=== PATIENT | male | born 1990 | race Asian ===

== ENCOUNTER 2017-08-24 13:49 | Inpatient (IN) | payer OTHER ==
[~2017-08-24] VITALS: Ht 162.6 cm; Wt 85.3 kg
--- NOTE | 2017-08-24 13:56 | NUR ---
CLINT FROM HOME DT HEADACHE, BACK PAIN AND LEG PAIN FOR FEW DAYS WORST TODAY, 8, ACHING. PATIENT IS AAO4. APPEARS IN NO APPARENT DISTRESS. RESPIRATION EVEN AND UNLABORED. SKIN IS WARM TO TOUCH AND NON DIPAHORETIC. AFEBRILE. VSS
--- NOTE | 2017-08-24 14:06 | NUR ---
THAI LEWIS AT BS
[2017-08-24] MEDS ORDERED: TRAMADOL HCL 50 MG TABLET ONE (14:11)
[2017-08-24] MEDS ORDERED: IV NS 0.9% 1,000 ML BAG IV ONE ×2 (14:30→15:30)
[2017-08-24] MEDS ORDERED: TRAMADOL HCL 50 MG TABLET PO ONE (14:30)
[2017-08-24 14:36] LABS: BASOPHILS % (AUTO) 0.5 % (0.0-2.0); EOSINOPHILS # (AUTO) 0.7 /CMM (0.0-0.7); EOSINOPHILS % (AUTO) 14.5 % (0.0-6.0); HEMATOCRIT 24 % (39-51); HEMOGLOBIN 8.2 g/dL (13.5-17.5); LYMPHOCYTES # (AUTO) 0.6 /CMM (0.8-4.8); LYMPHOCYTES % (AUTO) 13.7 % (20.0-44.0); MEAN CORPUSCULAR HEMOGLOBIN 30 PG (26.0-33.0); MEAN CORPUSCULAR HGB CONC 34 g/dl (31.0-36.0); MEAN CORPUSCULAR VOLUME 89 fL (80-96); MONOCYTES # (AUTO) 0.9 /CMM (0.1-1.30); MONOCYTES % (AUTO) 19.1 % (2.0-12.0); NEUTROPHILS # (AUTO) 2.5 /CMM (1.8-8.9); NEUTROPHILS % (AUTO) 52.2 % (43.0-81.0); PLATELET COUNT (AUTO) 160 /CMM (150-450); RDW COEFFICIENT OF VARIATION 12.7 (11.5-15.0); RED BLOOD CELL COUNT(AUTO) 2.72 MIL/uL (4.5-6.0); WHITE BLOOD COUNT (AUTO) 4.7 K/uL (4.3-11.0)
[2017-08-24 14:50] LABS: INR 0.85 (0.87-1.13); PROTHROMBIN TIME 8.8 SECS (9.5-12.7)
[2017-08-24 14:52] LABS: ALBUMIN 1.6 g/dL (3.4-5.0); BILIRUBIN,TOTAL 0.1 mg/dL (0.2-1.0); CALCIUM, SERUM 8.2 mg/dL (8.5-10.1); CREATININE 4.9 mg/dL (0.6-1.3); POTASSIUM 5.4 mmol/L (3.5-5.1); TOTAL PROTEIN, SERUM 5.9 g/dL (6.4-8.2)
--- NOTE | 2017-08-24 15:09 | NUR ---
URINE SAMPLE SENT TO LAB
[2017-08-24 15:19] LABS: APPEARANCE,URINE Clear (CLEAR); BILIRUBIN,URINE Negative (NEGATIVE); BLOOD, URINE Moderate Ery/uL (NEGATIVE); COLOR,URINE Light yellow (YELLOW); KETONES,URINE Negative (NEGATIVE); LEUKOCYTE ESTERASE ,URINE Negative (NEGATIVE); NITRITE, URINE Negative (NEGATIVE); PROTEIN,URINE >=300 mg/dl (NEGATIVE); UGLUCOSE 500 MG/DL mg/dL (NEGATIVE); UROBILINOGEN,URINE 0.2 EU/dL (0.2)
[2017-08-24 15:20] LABS: BAND % (MANUAL) 2 % (0.0-5.0); EOSINOPHILS % (MANUAL) 18 % (0-4); LYMPHOCYTES % (MANUAL) 20 % (16-48); MONOCYTES % (MANUAL) 10 % (0-11.0); NEUTROPHILS % (MANUAL) 50 (42-76)
[2017-08-24 15:24] LABS: BACTERIA,URINE None seen /HPF (None Seen); SQUAMOUS EPITHELIAL CELL,UR Few /HPF (None Seen); WBC,URINE 0-3 /HPF (0-3)
[2017-08-24] MEDS ORDERED: INSULIN REGULAR, HUMAN 100 UNIT/ML 10 ML VIAL ONE (15:28)
[2017-08-24] MEDS ORDERED: INSULIN REGULAR, HUMAN 100 UNIT/ML 10 ML VIAL SQ ONE (15:30)
[2017-08-24 15:50] LABS: ALCOHOL, BLOOD < 3 mg/dL (0-0)
[2017-08-24 16:03] LABS: SERUM AMMONIA 36 umol/L (11-32)
--- NOTE | 2017-08-24 16:49 | NUR ---
REPORT GIVEN TO RN JOB FOR CONTINUITY OF CARE
--- NOTE | 2017-08-24 16:50 | NUR ---
DR. DANIELS AT BEDSIDE
[2017-08-24] MEDS ORDERED: MAG HYDROX/AL HYDROX/SIMETH 30 ML UDC PO PRN (17:30)
[2017-08-24] MEDS ORDERED: ZOLPIDEM TARTRATE 5 MG TABLET PO PRN (17:30)
[2017-08-24] MEDS ORDERED: MAGNESIUM HYDROXIDE 30 ML UDC PO PRN (17:30)
[2017-08-24] MEDS ORDERED: ONDANSETRON HCL/PF 4 MG/2 ML VIAL IVP PRN (17:30)
[2017-08-24] MEDS ORDERED: ACETAMINOPHEN 325 MG TABLET PO PRN (17:30)
[2017-08-24] MEDS ORDERED: *INSULIN ASPART NOVOLOG 100 UNIT/ML CARTRIDGE SQ PRN (17:30)
[2017-08-24] MEDS ORDERED: DEXTROSE 50%-WATER 50 ML DISP.SYRIN IV PRN (17:30)
[2017-08-24] MEDS ORDERED: Z GUARD REMEDY 2 OZ OINT TP PRN (17:30)
[2017-08-24 18:07] LABS: AMYLASE 50 U/L (25-115); LIPASE 228 U/L (73-393)
--- NOTE | 2017-08-24 18:30 | NUR ---
RN INITIAL NOTE RECEIVED REPORT FROM ANGELO ODOM @ 2258. PT ARRIVED VIA [facility]. PT COLD V/S TAKEN. DR. DANIELS CALLED.
[2017-08-24 18:37] LABS: CREATINE KINASE MB 6.7 ng/mL (0-3.6)
[2017-08-24 18:48] VITALS: BP 147/87
[2017-08-24] MEDS: BLOOD SUGAR DIAGNOSTIC 1 EACH STRIP IN SCH ×2 (19:13→22:30)
[2017-08-24] MEDS: INSULIN ASPART HUMALOG/NOVOLOG 100 UNIT/ML CARTRIDGE SQ PRN ×2 (19:15→22:29)
[2017-08-24] MEDS: IV NS 0.9% 1,000 ML IV PRN (19:17)
[2017-08-24 20:00] VITALS: BP 164/102
[2017-08-24 20:45] LABS: ABG BASE EXCESS -6.2 mmol/L; ABG OXYGEN SATURATION 94.7 % (92.0-98.5); ABG PH 7.339 (7.350-7.450); AaDO2 18.6 mmHg; MetHb 1.3 % (0.0-1.5); O2Hb 93.5 % (94.0-97.0); SITE, ABG Right Radial; VENT MODE, BG RM AIR
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
[2017-08-25] VITALS (7 sets, daily range): BP systolic 140–186; BP diastolic 86–106
[2017-08-25] MEDS: HYDROCODONE/APAP 5/325MG 1 EACH TABLET PO PRN ×3 (00:41→21:39)
[2017-08-25] MEDS ORDERED: CLONIDINE HCL 0.1 MG TABLET PO ONE (02:00)
--- NOTE | 2017-08-25 02:01 | NUR ---
RN:TD: PT COMPLAINING OF MUSCLE SPASM AND SYMPTOMS OF WITHDRAW. BP ELEVATED AT 170/95 HR 110. PT REMAINS WEAK AND LETHARGIC BUT ALERT AND ORIENTED X 4. CALL[address] DELCID NOTIFIED REGARDING PT CONDITION AND VITAL SIGNS. NEW ORDERS FOR CLONIDINE RECEIVED. WILL CHECK PT BS. UNABLE TO OBTAIN PT HOME MEDS MED REC NURSE ON PREVIOUS SHIFT PLACED PAPERWORK IN UNKNOWN LOCATION AND UNABLE TO ENTER MED REC DR DANIELS HAS LOCKED THIS SCREEN. WILL ENDORSE TO ONCOMING SHIFT.
[2017-08-25] MEDS ORDERED: CLONIDINE HCL 0.1 MG TABLET ONE (02:06)
[2017-08-25 06:49] LABS: BASOPHILS % (AUTO) 0.3 % (0.0-2.0); EOSINOPHILS # (AUTO) 0.6 /CMM (0.0-0.7); EOSINOPHILS % (AUTO) 10.4 % (0.0-6.0); HEMATOCRIT 23 % (39-51); LYMPHOCYTES # (AUTO) 1.1 /CMM (0.8-4.8); MEAN CORPUSCULAR HEMOGLOBIN 30 PG (26.0-33.0); MEAN CORPUSCULAR HGB CONC 34 g/dl (31.0-36.0); MEAN CORPUSCULAR VOLUME 88 fL (80-96); MONOCYTES # (AUTO) 1.2 /CMM (0.1-1.30); NEUTROPHILS # (AUTO) 3.2 /CMM (1.8-8.9); NEUTROPHILS % (AUTO) 52.3 % (43.0-81.0); PLATELET COUNT (AUTO) 158 /CMM (150-450); RDW COEFFICIENT OF VARIATION 13.8 (11.5-15.0); RED BLOOD CELL COUNT(AUTO) 2.66 MIL/uL (4.5-6.0); WHITE BLOOD COUNT (AUTO) 6.1 K/uL (4.3-11.0)
[2017-08-25 06:59] LABS: INR 0.9 (0.87-1.13); PROTHROMBIN TIME 9.3 SECS (9.5-12.7)
[2017-08-25 07:05] LABS: BILIRUBIN,TOTAL 0.1 mg/dL (0.2-1.0); CALCIUM, SERUM 8.8 mg/dL (8.5-10.1); CREATININE 4.3 mg/dL (0.6-1.3); PHOSPHORUS 3.9 mg/dL (2.5-4.9); POTASSIUM 5.1 mmol/L (3.5-5.1); TOTAL PROTEIN, SERUM 5.5 g/dL (6.4-8.2)
[2017-08-25 07:12] LABS: ALBUMIN 1.3 g/dL (3.4-5.0)
[2017-08-25 07:25] LABS: RETICULOCYTE COUNT 3.3 % (0.6-2.5)
[2017-08-25] MEDS: BLOOD SUGAR DIAGNOSTIC 1 EACH STRIP IN SCH ×4 (07:44→21:50)
[2017-08-25] MEDS ORDERED: INSU100I19 SQ (07:49)
[2017-08-25] MEDS ORDERED: NICO1PAT10 TD (07:49)
[2017-08-25] MEDS ORDERED: ATOR40TA PO (07:49)
[2017-08-25] MEDS ORDERED: POLY17PO4 PO (07:49)
[2017-08-25] MEDS ORDERED: CARV6.252 PO (07:49)
[2017-08-25] MEDS ORDERED: HYDR-4076 PO (07:49)
[2017-08-25] MEDS ORDERED: AMLO10TA2 PO (07:49)
[2017-08-25] MEDS ORDERED: ASPI-991 PO (07:49)
[2017-08-25] MEDS ORDERED: TRAZ-144 PO (07:49)
[2017-08-25] MEDS ORDERED: LISI40TA4 PO (07:49)
[2017-08-25] MEDS ORDERED: DIVA500T7 PO (07:49)
[2017-08-25] MEDS ORDERED: HYDR-3026 PO (07:49)
--- NOTE | 2017-08-25 08:00 | NUR ---
NOAH/RN INITIAL NOTES,AM RECEIVED REPORT FROM NIGHT NURSE. PT AAOX4, PT RESTING IN BED. PT NOTED TO BE DROWSY, NO S/S OF WITHDRAWAL NOTED. PT ON TELE, SINUS TACH/SINUS RHYTHM. URINAL AT BEDSIDE, PT ABLE TO USE. SKIN INTACT, PT AMBULATORY. PIVS PATENT AND INTACT, NO S/S OF INFECTION OR INFILTRATION NOTED. IV FLUIDS INFUSING ORDERED. ALL NEEDS WILL BE MET, SAFETY MEASURES TAKEN, BED IN LOW POSITION, SIDE RAILS UP, CALL LIGHT WITHIN REACH. RENAL CONSULT PENDING. WILL CONTINUE CARE
[2017-08-25 08:01] LABS: THYROID STIMULATING HORMONE 1.029 uIU/mL (0.358-3.74)
[2017-08-25] MEDS: INSULIN ASPART HUMALOG/NOVOLOG 100 UNIT/ML CARTRIDGE SQ PRN ×4 (08:34→21:47)
[2017-08-25 11:10] LABS: BAND % (MANUAL) 28 % (0.0-5.0); EOSINOPHILS % (MANUAL) 9 % (0-4); LYMPHOCYTES % (MANUAL) 5 % (16-48); MONOCYTES % (MANUAL) 5 % (0-11.0); NEUTROPHILS % (MANUAL) 53 (42-76)
--- NOTE | 2017-08-25 12:20 | NUR ---
NOAH/RN: CALLED REGARDING MED RECON, SHE SAID SHE WILL DO IT.
--- NOTE | 2017-08-25 14:00 | NUR ---
NOAH/RN: PT SEEN AND ASSESSED BY PHYSICAL THERAPY. PT WALKED WITH WALKER, STANDBY ASSIST.
--- NOTE | 2017-08-25 16:00 | NUR ---
NOAH RN: TEMP 101.4. TYLENOL GIVEN, COOLING MEASURES TAKEN. WILL REASSESS
[2017-08-25] MEDS: IV NS 0.9% 1,000 ML IV PRN (16:25)
--- NOTE | 2017-08-25 18:40 | NUR ---
ICU/RN: SPOKE TO BUSINESS AREA MANAGER ADILSON REGARDING NEED OF FOREIGN COLLECTION CLERK, ORDERS PLACED. PT WILL BE ASSESSED BY EMMA, FOREIGN COLLECTION CLERK.
--- NOTE | 2017-08-25 18:58 | NUR ---
NOAH/RN ENDING NOTES,AM REPORT WILL BE ENDORSED TO NIGHT NURSE FOR CONTINUATION OF CARE. PT ON NASAL CANULA, NO DISTRESS NOTED. SINUS ON TELE IV FLUDS INFUSING ORDERED. PIV PATENT AND INTACT, NO S/S OF INFECTION OR INFILTRATION NOTED. SAFETY MEASURES TAKEN. BED IN LOW POSITION, SIDE RAILS UP CALL LIGHT WITHIN REACH
[2017-08-25 21:26] LABS: CREATININE, URINE 34.1 MG/DL (30.0-125.0); URINE TOTAL PROTEIN 404.2 mg/dL (0-11.9)
[2017-08-25 21:29] LABS: APPEARANCE,URINE CLEAR (CLEAR); BILIRUBIN,URINE NEGATIVE (NEGATIVE); BLOOD, URINE 3+ Ery/uL (NEGATIVE); COLOR,URINE YELLOW (YELLOW); KETONES,URINE NEGATIVE (NEGATIVE); LEUKOCYTE ESTERASE ,URINE NEGATIVE (NEGATIVE); NITRITE, URINE NEGATIVE (NEGATIVE); PH,URINE 6.5 (5.0-8.0); PROTEIN,URINE 3+ mg/dl (NEGATIVE); UGLUCOSE 2+ mg/dL (NEGATIVE); UROBILINOGEN,URINE 0.2 EU/dL (0.2)
[2017-08-25 21:54] LABS: SQUAMOUS EPITHELIAL CELL,UR Moderate /HPF (None Seen); WBC,URINE 0-2 /HPF (0-3)
[2017-08-25 22:38] LABS: BACTERIA,URINE Moderate /HPF (None Seen)
[2017-08-25 22:54] LABS: EOSINOPHIL,URINE Few
[2017-08-26 04:00] VITALS: BP 148/89
[2017-08-26] MEDS: IV NS 0.9% 1,000 ML IV PRN ×2 (04:04→16:53)
--- NOTE | 2017-08-26 06:32 | NUR ---
END OF SHIFT SUMMERY: pt is A&O X 4. in a stable condition, still on 2 L NC, saturating well. no acute respiratory/cardiac distress noted. will endorse pt to AM shift nurse to continue the care.
[2017-08-26 07:18] LABS: BASOPHILS % (AUTO) 0.6 % (0.0-2.0); EOSINOPHILS # (AUTO) 0.8 /CMM (0.0-0.7); EOSINOPHILS % (AUTO) 12.6 % (0.0-6.0); HEMATOCRIT 25 % (39-51); HEMOGLOBIN 8.5 g/dL (13.5-17.5); LYMPHOCYTES # (AUTO) 1.4 /CMM (0.8-4.8); MEAN CORPUSCULAR HEMOGLOBIN 30 PG (26.0-33.0); MEAN CORPUSCULAR HGB CONC 35 g/dl (31.0-36.0); MEAN CORPUSCULAR VOLUME 88 fL (80-96); MONOCYTES # (AUTO) 1.4 /CMM (0.1-1.30); MONOCYTES % (AUTO) 22.3 % (2.0-12.0); NEUTROPHILS # (AUTO) 2.5 /CMM (1.8-8.9); NEUTROPHILS % (AUTO) 41.5 % (43.0-81.0); PLATELET COUNT (AUTO) 167 /CMM (150-450); RDW COEFFICIENT OF VARIATION 13.9 (11.5-15.0); WHITE BLOOD COUNT (AUTO) 6.1 K/uL (4.3-11.0)
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
[2017-08-26 07:40] LABS: BILIRUBIN,TOTAL 0.2 mg/dL (0.2-1.0); CALCIUM, SERUM 8.9 mg/dL (8.5-10.1); CREATININE 3.8 mg/dL (0.6-1.3); MAGNESIUM 1.9 mg/dL (1.8-2.4); PHOSPHORUS 3.9 mg/dL (2.5-4.9); POTASSIUM 5.5 mmol/L (3.5-5.1); TOTAL PROTEIN, SERUM 5.7 g/dL (6.4-8.2)
[2017-08-26 07:44] LABS: ALBUMIN 1.2 g/dL (3.4-5.0)
[2017-08-26 08:00] VITALS: BP 130/60
[2017-08-26 08:01] LABS: CREATINE KINASE MB 3.5 ng/mL (0-3.6)
[2017-08-26] MEDS: BLOOD SUGAR DIAGNOSTIC 1 EACH STRIP IN SCH ×4 (09:15→22:02)
[2017-08-26] MEDS: INSULIN ASPART HUMALOG/NOVOLOG 100 UNIT/ML CARTRIDGE SQ PRN ×4 (09:20→22:04)
[2017-08-26 10:12] LABS: BAND % (MANUAL) 11 % (0.0-5.0); EOSINOPHILS % (MANUAL) 12 % (0-4); LYMPHOCYTES % (MANUAL) 12 % (16-48); MONOCYTES % (MANUAL) 27 % (0-11.0); NEUTROPHILS % (MANUAL) 38 (42-76)
[2017-08-26 16:00] VITALS: BP 121/69
--- NOTE | 2017-08-26 18:15 | NUR ---
rn note all medications and orders carried out, pt kept clean and dry, all safety measures in place at all times, iv c/d/i/patent, flushing well, running ns @ 85ml/hr
--- NOTE | 2017-08-26 19:22 | NUR ---
rn note report given to pm rn for ariana, pt resting comfortably.
[2017-08-26 20:00] VITALS: BP 159/96
--- NOTE | 2017-08-26 20:00 | NUR ---
RN NOTES RECEIVED PATIENT AWAKE SITTING IN HIS BED WITH NO RESPIRATORY DISTRESS OR SHORTNESS OF BREATH. BREATHING EVEN AND UNLABORED. ALERT AND ORIENTED. VERBALLY ABLE TO COMMUNICATE NEEDS. WITH COMPLAINT OF BACK PAIN. LEFT ANTICUBITAL PIV LINE PATENT WITH NS @85ML/HR TOLERATING WELL. WILL CONTINUE TO MONITOR.
[2017-08-26] MEDS: HYDROCODONE/APAP 5/325MG 1 EACH TABLET PO PRN (20:56)
[2017-08-27] MEDS: IV NS 0.9% 1,000 ML IV PRN ×2 (04:11→20:00)
--- NOTE | 2017-08-27 07:10 | NUR ---
RN NOTES RECEIVED PATIENT ON BED, A/Ox4, ON RA , RESPIRATION EVEN AND UNLABORED, NO SOB NOTED, R HAND IV AND L AC IV G 18 SITES CDI, NS AT 85CC/HR RUNNING VIA L AC IV SITE , SR UP x3, CALL LIGHT WITHIN EASY REACH, BED LOCKED AND IN LOWEST POSITION . CONTINUE TO MONITOR PT CLOSELY.
[2017-08-27] MEDS: BLOOD SUGAR DIAGNOSTIC 1 EACH STRIP IN SCH ×4 (07:11→21:32)
[2017-08-27] MEDS: INSULIN ASPART HUMALOG/NOVOLOG 100 UNIT/ML CARTRIDGE SQ PRN ×4 (07:14→21:34)
--- NOTE | 2017-08-27 07:19 | NUR ---
RN NOTES RESIDENT IN BED SLEEPING COMFORTABLY WITH NO RESPIRATORY DISTRESS OR SHORTNESS OF BREATH. BREATHING EVEN AND UNLABORED. NOTED WITH HIGH BLOOD PRESSURE. NO SIGN OR SYMPTOM OF CRISIS. WILL ENDORSE TO AM SHIFT FOR CONTINUITY OF CARE
[2017-08-27 07:20] LABS: BASOPHILS % (AUTO) 0.6 % (0.0-2.0); EOSINOPHILS # (AUTO) 1.2 /CMM (0.0-0.7); EOSINOPHILS % (AUTO) 16.9 % (0.0-6.0); HEMATOCRIT 24 % (39-51); HEMOGLOBIN 8.1 g/dL (13.5-17.5); LYMPHOCYTES # (AUTO) 1.9 /CMM (0.8-4.8); LYMPHOCYTES % (AUTO) 26.7 % (20.0-44.0); MEAN CORPUSCULAR HEMOGLOBIN 30 PG (26.0-33.0); MEAN CORPUSCULAR HGB CONC 34 g/dl (31.0-36.0); MEAN CORPUSCULAR VOLUME 89 fL (80-96); MONOCYTES # (AUTO) 1.3 /CMM (0.1-1.30); MONOCYTES % (AUTO) 18.5 % (2.0-12.0); NEUTROPHILS # (AUTO) 2.7 /CMM (1.8-8.9); NEUTROPHILS % (AUTO) 37.3 % (43.0-81.0); PLATELET COUNT (AUTO) 208 /CMM (150-450); RDW COEFFICIENT OF VARIATION 13.8 (11.5-15.0); RED BLOOD CELL COUNT(AUTO) 2.65 MIL/uL (4.5-6.0); WHITE BLOOD COUNT (AUTO) 7.2 K/uL (4.3-11.0)
[2017-08-27 07:49] LABS: CALCIUM, SERUM 8.7 mg/dL (8.5-10.1); CREATININE 3.8 mg/dL (0.6-1.3); MAGNESIUM 1.9 mg/dL (1.8-2.4); PHOSPHORUS 4.3 mg/dL (2.5-4.9); POTASSIUM 5.4 mmol/L (3.5-5.1)
[2017-08-27 08:00] VITALS: BP 187/104
--- NOTE | 2017-08-27 09:00 | NUR ---
RN NOTES BP= 186/104. DR DANIELS NOTIFIED NEW ORDER GIVEN . CONTINUE TO MONITOR .
[2017-08-27] MEDS ORDERED: hydrALAZINE HCL 25 MG TABLET PO PRN (09:30)
[2017-08-27] MEDS: AMLODIPINE BESYLATE 10 MG TABLET PO SCH (09:32)
[2017-08-27] MEDS: ASPIRIN EC 81 MG TABLET.DR PO SCH (09:35)
[2017-08-27] MEDS: CARVEDILOL 6.25 MG TABLET PO SCH ×2 (09:35→16:46)
[2017-08-27] MEDS: DIVALPROEX SODIUM 500 MG TABLET.DR PO SCH ×2 (09:35→16:46)
--- NOTE | 2017-08-27 10:00 | NUR ---
RN NOTES BP 148/88 , PT UP AND WALKING AROUND THE ROOM, STABLE , CONTINUE TO MONITOR.
[2017-08-27 12:04] LABS: EOSINOPHILS % (MANUAL) 24 % (0-4); LYMPHOCYTES % (MANUAL) 20 % (16-48); MONOCYTES % (MANUAL) 10 % (0-11.0); NEUTROPHILS % (MANUAL) 46 (42-76)
[2017-08-27] MEDS ORDERED: SODIUM POLYSTYRENE SULFONATE 15 G/60 ML BOTTLE PO ONE (13:30)
[2017-08-27 14:15] LABS: PTH, INTACT 49 pg/mL (15-65)
--- NOTE | 2017-08-27 16:00 | NUR ---
RN NOTES LARGE BM NOTED AFTER KAYEXALATE GIVE .
--- NOTE | 2017-08-27 17:00 | NUR ---
RN NOTES PT STATED WANTS TO GO OUT AND SMOKE, NICODERM PATCH OFFERED BUT PT REFUSED . PT STATED WILL WAIT TILL AM TO ASK THE MD .
[2017-08-27] MEDS: HYDROCODONE/APAP 5/325MG 1 EACH TABLET PO PRN (17:20)
[2017-08-27] MEDS: NICOTINE PATCH (14MG) 14 MG PATCH.TD24 TD SCH (17:23)
--- NOTE | 2017-08-27 18:21 | NUR ---
RN NOTES PT STABLE , VSS STABLE , SUPPORTIVE FAMILY AT THE BEDSIDE, WALKING AROUND NURSING STATION AT TIMES , NS AT 85CC/HR RUNNING VIA [employer] 18, CALL LIGHT WITHIN EASY REACH, WILL ENDORSE TO CELL STRIPPER NURSE FOR ADAM.
[2017-08-27 20:00] VITALS: BP 142/84
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
[2017-08-27] MEDS: ATORVASTATIN 40 MG TABLET PO SCH (21:34)
[2017-08-27] MEDS: TRAZODONE 50 MG TABLET PO SCH (21:34)
[2017-08-28 04:00] VITALS: BP 176/95
--- NOTE | 2017-08-28 06:00 | NUR ---
MS RN NOTES RECEIVE PT FROM NOAH, TRANSFER TO MS 209-1 PT IN STABLE CONDITION KEPT CLEAN AND DRY WILL CONT TO MONITOR
[2017-08-28] MEDS: BLOOD SUGAR DIAGNOSTIC 1 EACH STRIP IN SCH ×4 (06:12→22:09)
[2017-08-28] MEDS: INSULIN ASPART HUMALOG/NOVOLOG 100 UNIT/ML CARTRIDGE SQ PRN ×3 (06:16→22:07)
--- NOTE | 2017-08-28 06:20 | NUR ---
RN NOTES PATIENT TRANSFERRED TO [facility] 2 IN STABLE CONDITION. REPORT GIVEN TO DAQUAN. ALL BELONGINGS HANDED OVER.
[2017-08-28 06:32] VITALS: BP 140/78
--- NOTE | 2017-08-28 06:43 | NUR ---
MS RN CLOSING NOTES ASLEEP IN BED, COMFORTABLY . EASILY AWAKEN, HEAD OF BED ELEVATED FOR BETTER LUNG EXPANSION AND GOOD CIRCULATION, TOLERATING ROOM AIR 02 SAT 100% IN STABLE CONDITION, NOT IN RESPIRATORY DISTRESS, RESPIRATIONS EVEN AND UNLABORED, GOOD SKIN CARE PROVIDED, KEPT CLEAN AND DRY AND COMFORTABLE, AFEBRILE, NEEDS ATTENDED AND ANTICIPATED, NURSING CARE RENDERED. SAFETY SAFE HAZARD FREE ENVIRONMENT PROVIDED. CALL LIGHT WITHIN EASY TO REACH, ON LOW BED AT ALL TIMES TO ENSURE SAFETY, WILL ENDORSE TO THE NEXT SHIFT CONTINUE PLAN OF CARE
--- NOTE | 2017-08-28 07:30 | NUR ---
MS RN AM NOTES PT IN BED, ASLEEP, RESPONDS TO NAME AND TOUCH, APPEARS DROWSY, SLIGHT CONFUSION, AOX2-3, ON RA, NAD, NO SOB, RESPIRATION UNLABORED, DENIES PAIN, RT HAND G20 WITH NS AT 85 ML/HR, LEFT AC G18 FLUSHES WELL, BOTH SITES CLEAR. SEE NURSING FLOWSHEET FOR SKIN ISSUES. AMBULATORY. POC DISCUSSED, BED LOW LOCKED, SAFETY MEASURES IN PLACE, CALL LIGHT WITHIN REACH, WILL CONT TO MONITOR.
[2017-08-28 07:37] LABS: BASOPHILS % (AUTO) 0.4 % (0.0-2.0); EOSINOPHILS # (AUTO) 1.3 /CMM (0.0-0.7); EOSINOPHILS % (AUTO) 15.5 % (0.0-6.0); HEMATOCRIT 24 % (39-51); HEMOGLOBIN 8.1 g/dL (13.5-17.5); LYMPHOCYTES # (AUTO) 1.8 /CMM (0.8-4.8); LYMPHOCYTES % (AUTO) 21.6 % (20.0-44.0); MEAN CORPUSCULAR HEMOGLOBIN 30 PG (26.0-33.0); MEAN CORPUSCULAR HGB CONC 35 g/dl (31.0-36.0); MEAN CORPUSCULAR VOLUME 87 fL (80-96); MONOCYTES # (AUTO) 1.1 /CMM (0.1-1.30); MONOCYTES % (AUTO) 13.7 % (2.0-12.0); NEUTROPHILS % (AUTO) 48.8 % (43.0-81.0); PLATELET COUNT (AUTO) 237 /CMM (150-450); RDW COEFFICIENT OF VARIATION 13.8 (11.5-15.0); WHITE BLOOD COUNT (AUTO) 8.1 K/uL (4.3-11.0)
[2017-08-28 07:50] LABS: CALCIUM, SERUM 8.8 mg/dL (8.5-10.1); CREATININE 3.7 mg/dL (0.6-1.3); MAGNESIUM 1.8 mg/dL (1.8-2.4); POTASSIUM 5.2 mmol/L (3.5-5.1)
[2017-08-28 08:00] VITALS: BP 130/70
[2017-08-28] MEDS: DIVALPROEX SODIUM 500 MG TABLET.DR PO SCH ×2 (08:43→16:27)
[2017-08-28] MEDS: AMLODIPINE BESYLATE 10 MG TABLET PO SCH (08:44)
[2017-08-28] MEDS: CARVEDILOL 6.25 MG TABLET PO SCH ×2 (08:44→16:27)
[2017-08-28] MEDS: POLYETHYLENE GLYCOL 3350 17 GM POWD.PACK PO SCH (08:44)
[2017-08-28] MEDS: INSULIN DETEMIR 100 UNIT/ML CARTRIDGE SQ SCH (08:49)
[2017-08-28] MEDS: ASPIRIN EC 81 MG TABLET.DR PO SCH (08:49)
[2017-08-28] MEDS ORDERED: NICOTINE PATCH (14MG) 14 MG PATCH.TD24 TD SCH (09:00)
[2017-08-28] MEDS: NICOTINE PATCH (14MG) 14 MG PATCH.TD24 TD SCH (09:00)
--- NOTE | 2017-08-28 09:30 | NUR ---
MS RN NOTES DUE MEDS GIVEN.
--- NOTE | 2017-08-28 11:22 | NUR ---
MS RN NOTES ACCUCHECK. BS 217 MG/DL. 8 UNITS HUMALOG INSULIN GIVEN PER SS.
[2017-08-28] MEDS: IV NS 0.9% 1,000 ML IV PRN (13:47)
[2017-08-28 16:00] VITALS: BP 147/90
--- NOTE | 2017-08-28 16:33 | NUR ---
MS RN NOTES ACCUCHECK. BS 110 MG/DL. NO INSULIN COVERAGE GIVEN.
[2017-08-28 18:00] VITALS: BP 147/90
--- NOTE | 2017-08-28 18:27 | NUR ---
MS RN CLOSING NOTES PT IN BED, RESTING, RESPONDS TO NAME AND TOUCH, APPEARS DROWSY, SLIGHT CONFUSION, AOX2-3, SLEPT MOSTLY DURING DAYSHIFT. ON RA, NAD, NO SOB, RESPIRATION UNLABORED, DENIES PAIN, RT HAND G20 WITH NS AT 85 ML/HR, LEFT AC G18 FLUSHES WELL, BOTH SITES CLEAR. AMBULATORY. BED LOW LOCKED, SAFETY MEASURES IN PLACE, CALL LIGHT WITHIN REACH, WILL ENDORSE TO NEXT SHIFT FOR ADAM. DC PLANNING IN AM.
--- NOTE | 2017-08-28 19:00 | NUR ---
MS RN OPENING NOTES PT IN BED RESTING, PT A/O X 4, IN STABLE CONDITION. TOLERATING ROOM AIR 100% BREATHING EVEN AND UNLABORED, SAFETY MEASURES IN PLACE, BED LOCKED AND IN LOWEST POSITION, CALL LIGHT IN REACH. WILL CONTINUE TO MONITOR.
[2017-08-28 20:00] VITALS: BP 159/93
[2017-08-28] MEDS: TRAZODONE 50 MG TABLET PO SCH (21:58)
[2017-08-28] MEDS: ATORVASTATIN 40 MG TABLET PO SCH (21:58)
[2017-08-29] MEDS: IV NS 0.9% 1,000 ML IV PRN (05:38)
[2017-08-29] MEDS: BLOOD SUGAR DIAGNOSTIC 1 EACH STRIP IN SCH ×2 (05:48→12:24)
[2017-08-29] MEDS: INSULIN ASPART HUMALOG/NOVOLOG 100 UNIT/ML CARTRIDGE SQ PRN ×2 (05:49→12:24)
--- NOTE | 2017-08-29 06:36 | NUR ---
MS RN CLOSING NOTES PLACE IN BED ASLEEP NOW BUT EASILY AWAKEN. STABLE CONDITION. HEAD OF BED ELEVATED FOR BETTER LUNG EXPANSION AND GOOD CIRCULATION, TOLERATING ROOM AIR 02 SAT 100% RESPIRATIONS EVEN AND UNLABORED, NOT IN RESPIRATORY DISTRESS, AFEBRILE, KEPT CLEAN AND DRY AND COMFORTABLE, NEEDS ATTENDED AND ANTICIPATED, NURSING CARE RENDERED. SAFE HAZARD FREE ENVIRONMENT PROVIDED. CALL LIGHT WITHIN EASY TO REACH, ON LOW BED AT ALL TIMES TO ENSURE SAFETY, WILL ENDORSE TO THE NEXT SHIFT CONTINUE POC.
[2017-08-29 07:07] LABS: *SPE A/G RATIO 0.5 (0.7-1.7); *SPE ALBUMIN 1.6 g/dL (2.9-4.4); *SPE ALPHA-1-GLOBULIN 0.2 g/dL (0.0-0.4); *SPE GLOBULIN, TOTAL 3.2 g/dL (2.2-3.9); *SPE M-SPIKE Not Observed g/dL (Not Observed); *SPE PROTEIN TOTAL 4.8 g/dL (6.0-8.5)
--- NOTE | 2017-08-29 07:23 | NUR ---
MS RN OPENING NOTES RECEIVED PT ASLEEP IN BED, EASILY AROUSABLE. A/O X4, VERBALLY RESPONSIVE, NO C/O PAIN OR DISCOMFORTS AT THIS TIME. ON ROOM AIR AT THIS TIME, TOLERATING WELL WITH NO SOB NOTED. IV ACCESS ON LEFT AC INTACT AND PATENT WITH IVF OF NS AT 85 ML/HR INFUSING WELL, NO SIGNS OF INFILTRATION NOTED. SAFETY MEASURES IN PLACED. BED LOCKED AND IN LOWEST POSITION, CALL LIGHT WITHIN EASY REACH. WILL CONTINUE TO MONITOR PT ACCORDINGLY.
[2017-08-29 07:40] LABS: CALCIUM, SERUM 8.4 mg/dL (8.5-10.1); CREATININE 3.1 mg/dL (0.6-1.3); MAGNESIUM 1.7 mg/dL (1.8-2.4); PHOSPHORUS 4.7 mg/dL (2.5-4.9); POTASSIUM 4.1 mmol/L (3.5-5.1)
[2017-08-29 08:00] VITALS: BP 175/101
[2017-08-29] MEDS: AMLODIPINE BESYLATE 10 MG TABLET PO SCH (08:40)
[2017-08-29] MEDS: ASPIRIN EC 81 MG TABLET.DR PO SCH (08:40)
[2017-08-29] MEDS: POLYETHYLENE GLYCOL 3350 17 GM POWD.PACK PO SCH (08:40)
[2017-08-29] MEDS: DIVALPROEX SODIUM 500 MG TABLET.DR PO SCH (08:40)
[2017-08-29] MEDS: CARVEDILOL 6.25 MG TABLET PO SCH (08:41)
[2017-08-29] MEDS: NICOTINE PATCH (14MG) 14 MG PATCH.TD24 TD SCH (08:43)
[2017-08-29] MEDS: INSULIN DETEMIR 100 UNIT/ML CARTRIDGE SQ SCH (09:14)
[2017-08-29] MEDS: HYDROCODONE/APAP 5/325MG 1 EACH TABLET PO PRN (09:18)
--- NOTE | 2017-08-29 10:06 | NUR ---
RN NOTES PT NOTED WITH LOW MG 1.7, MADE AWARE WITH ORDER TO GIVE MG OXIDE 800MG TAB X 1. WILL CONTINUE TO MONITOR
[2017-08-29] MEDS ORDERED: MAGNESIUM OXIDE 400 MG TABLET PO ONE (10:30)
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
[2017-08-29 12:00] VITALS: BP 145/89
--- NOTE | 2017-08-29 12:00 | NUR ---
RN NOTES PT NOTED WITH BP OF 175/101 MMHG AT 0800, NO C/O DISTRESS, HEADACHE, N & V. STANDING ORDER OF COREG 6.25MG TAB AND NORVASC 10MG GIVEN. LATEST BP NOW IS 145/89MMHG. WILL CONTINUE TO MONITOR.
--- NOTE | 2017-08-29 15:31 | NUR ---
RN DISCHARGED NOTED PT DISCHARGED HOME IN STABLE CONDITION. HE LEFT UNIT AT 1520H ALERT AND ORIENTED X 4 IN NO ACUTE SIGNS OF DISTRESS, AMBULATORY ACCOMPANIED BY BROTHER. V/S TAKEN AND RECORDED. PHOTO OF SKIN ON LEFT ABDOMEN TAKEN AND FILED ON CHART. BELONGINGS CHECKED, COUNTED AND SIGNED FORM. PT REFUSED FLU AND PNA VACCINES DESPITE ENCOURAGEMENT. HEALTH TEACHINGS GIVEN AND VERBALIZED UNDERSTANDING. MD AND SOUND DESIGNER AWARE OF DISCHARGE. .
== END 2017-08-29 15:22 | disposition home health service (06) | DRG 682 ==
LOC: ER 13:55 → ICU 16:39 → TELE-TD 17:33 → MEDSG1 08-25 16:41 → MEDSG2 08-28 05:52
PROVIDERS: ADMIT Internal Medicine; ATTEND Internal Medicine
DX: N17.0 Acute kidney failure with tubular necrosis (principal); E43 Unspecified severe protein-calorie malnutrition; E10.21 Type 1 diabetes mellitus with diabetic nephropathy; D68.59 Other primary thrombophilia; E10.22 Type 1 diabetes mellitus with diabetic chronic kidney disease; E10.65 Type 1 diabetes mellitus with hyperglycemia; T76.11XA Adult physical abuse, suspected, initial encounter; N39.0 Urinary tract infection, site not specified; Z88.0 Allergy status to penicillin; Z88.1 Allergy status to other antibiotic agents; Z91.011 Allergy to milk products; I12.9 Hypertensive chronic kidney disease with stage 1 through stage 4 chronic kidney disease, or unspecified chronic kidney disease; N18.9 Chronic kidney disease, unspecified; Z79.4 Long term (current) use of insulin; D63.8 Anemia in other chronic diseases classified elsewhere; Z91.19 Patient's noncompliance with other medical treatment and regimen; E66.9 Obesity, unspecified; Y04.2XXA Assault by strike against or bumped into by another person, initial encounter; Y92.009 Unspecified place in unspecified non-institutional (private) residence as the place of occurrence of the external cause; G44.309 Post-traumatic headache, unspecified, not intractable; F15.10 Other stimulant abuse, uncomplicated; E87.5 Hyperkalemia; F17.200 Nicotine dependence, unspecified, uncomplicated; Z83.3 Family history of diabetes mellitus; Z82.49 Family history of ischemic heart disease and other diseases of the circulatory system; Z84.1 Family history of disorders of kidney and ureter; Z79.82 Long term (current) use of aspirin; Z79.899 Other long term (current) drug therapy; Z68.32 Body mass index [BMI] 32.0-32.9, adult; H54.61 Unqualified visual loss, right eye, normal vision left eye; H40.9 Unspecified glaucoma; K38.1 Appendicular concretions; S30.1XXA Contusion of abdominal wall, initial encounter; S00.03XA Contusion of scalp, initial encounter
CPT/HCPCS: 36415; 36600; 70450-TC; 71010-TC; 76700-TC; 80048-TC; 80053-TC; 80061-TC; 80076-TC; 81000-TC; 82140-TC; 82150-TC; 82550-TC; 82553-TC; 82570-TC; 82746; 82803-TC; 82962-TC; 83540-TC; 83690-TC; 83735-TC; 83970; 84100-TC; 84155; 84155-TC; 84165; 84300-TC; 84443-TC; 85025-TC; 85045-TC; 85652-TC; 85730-TC; 86803; 87040-TC; 87081-TC; 87086-TC; 87186-TC; 93307-TC; A4606; G0480; J1815; J7030; Z7610